=== PATIENT | female | born 1990 | race Caucasian/White ===

== ENCOUNTER 2017-01-16 03:19 | Emergency (ER) | payer OTHER ==
[~2017-01-16] VITALS: Ht 162.5 cm; Wt 68.0 kg
[~2017-01-16 03:19] MED LIST: ALBUTEROL2.5 MG/0.5 INH; AMOXICILLIN500 M2 PO; BENTYL10 MG PO; CEPHALEXIN500 M1 PO; CIPRO500 MG PO; FLEXERIL10 MG PO; HYDROXYZINE PAM25 MG PO; IBU800 M1 PO; IRON325 M1 PO; MACROBID100 M1 PO; MOTRIN800 MG PO; Motrin,Rufen800 MG PO; PERCOCET 325 MG1 TA5 PO; PRENATAL1 TA3 PO; ZYRTEC10 MG PO
[2017-01-16] MEDS ORDERED: PRILOSEC20 M1 PO (03:22)
[2017-01-16 03:59] LABS: BASO % 0.4 % (0.0-1.0); EOS # 0.2 10*3/uL (0.0-0.4); HEMATOCRIT 39.6 % (37.0-47.0); HEMOGLOBIN 13.2 g/dl (12.0-16.0); LYMPH # 3.5 10*3/uL (1.3-4.4); LYMPH % 34.9 % (27.0-41.0); MEAN CELL VOLUME 88.4 fl (81.0-99.0); MEAN CORPUSCULAR HGB 29.5 pg (27.0-31.0); MEAN CORPUSCULAR HGB CONC 33.3 g/dl (33.0-37.0); MEAN PLATELET VOLUME 11.6 fl (9.6-12.3); MONO # 0.4 10*3/uL (0.1-1.0); MONO % 4.2 % (3.0-9.0); NEUT # 5.8 10*3/uL (2.3-7.9); NEUT % 58.2 % (47.0-73.0); PLATELET COUNT AUTOMATED 159 10*3/uL (130-400); RED BLOOD COUNT 4.48 10*6/uL (4.10-5.10); RED CELL DISTRI WIDTH 13.5 % (0-14.5)
[2017-01-16 04:15] LABS: ALBUMIN 3.5 gm/dl (3.1-4.5); ALKALINE PHOSPHATASE 64 U/L (45-117); BILIRUBIN, TOTAL 0.3 mg/dl (0.2-1.0); BUN 14 mg/dl (7-24); CARBON DIOXIDE 25 mmol/L (21-32); CHLORIDE 108 mmol/L (98-107); EST GLOM FILT AFRICAN AMERICAN > 60 ml/min; GLUCOSE 99 mg/dL (65-99); POTASSIUM 4.1 mmol/L (3.5-5.1); SGOT/AST 49 IU/L (3-35); SGPT/ALT 29 U/L (12-78); SODIUM 141 mmol/L (136-145); TOTAL PROTEIN 6.7 gm/dL (6.4-8.2)
[2017-01-16 04:16] LABS: TROPONIN I < 0.015 ng/ml (<0.045)
[2017-01-16] MEDS ORDERED: OMEPRAZOLE40 MG PO (04:35)
== END 2017-01-16 04:56 | disposition home or self-care (01) ==
LOC: ED 03:19
PROVIDERS: Student in an Organized Health Care Education/Training Program
DX: K21.9 Gastro-esophageal reflux disease without esophagitis (principal)

== ENCOUNTER 2017-02-17 14:18 | Emergency (ER) | payer OTHER ==
[~2017-02-17] VITALS: Ht 165.1 cm; Wt 58.1 kg
[~2017-02-17 14:18] MED LIST changes: +OMEPRAZOLE40 MG PO; +PRILOSEC20 M1 PO
[2017-02-17 14:50] LABS: BASO # 0.1 10*3/uL (0.0-0.1); BASO % 0.8 % (0.0-1.0); EOS # 0.4 10*3/uL (0.0-0.4); EOS % 4.6 % (1.0-4.0); HEMATOCRIT 41.9 % (37.0-47.0); HEMOGLOBIN 14.3 g/dl (12.0-16.0); LYMPH # 3.4 10*3/uL (1.3-4.4); LYMPH % 36.3 % (27.0-41.0); MEAN CELL VOLUME 87.1 fl (81.0-99.0); MEAN CORPUSCULAR HGB 29.7 pg (27.0-31.0); MEAN CORPUSCULAR HGB CONC 34.1 g/dl (33.0-37.0); MONO # 0.4 10*3/uL (0.1-1.0); MONO % 4.8 % (3.0-9.0); NEUT # 4.9 10*3/uL (2.3-7.9); NEUT % 53.4 % (47.0-73.0); PLATELET COUNT AUTOMATED 193 10*3/uL (130-400); RED BLOOD COUNT 4.81 10*6/uL (4.10-5.10); RED CELL DISTRI WIDTH 13.4 % (0-14.5); WHITE BLOOD COUNT 9.2 10*3/uL (4.8-10.8)
[2017-02-17 15:10] LABS: ALBUMIN 3.9 gm/dl (3.1-4.5); ALKALINE PHOSPHATASE 103 U/L (45-117); BUN 15 mg/dl (7-24); CHLORIDE 106 mmol/L (98-107); CREATININE 1.13 mg/dL (0.55-1.02); LIPASE 247 U/L (73-393); POTASSIUM 4.2 mmol/L (3.5-5.1); SGOT/AST 74 IU/L (3-35); SGPT/ALT 110 U/L (12-78); SODIUM 140 mmol/L (136-145); TOTAL PROTEIN 7.9 gm/dL (6.4-8.2)
[2017-02-17 15:12] LABS: TROPONIN I < 0.015 ng/ml (<0.045)
[2017-02-17 15:17] LABS: BILIRUBIN NEGATIVE (NEGATIVE); BLOOD TRACE-INTACT (NEGATIVE); CLARITY SL CLOUDY (CLEAR); COLOR YELLOW (YELLOW); GLUCOSE NEGATIVE (NEGATIVE); KETONE NEGATIVE (NEGATIVE); LEUKO ESTERASE NEGATIVE (NEGATIVE); NITRITE NEGATIVE (NEGATIVE); SPECIFIC GRAVITY <= 1.005 (1.005-1.030); UROBILINOGEN 0.2 E.U./dl (0.2-1.0)
[2017-02-17 15:47] LABS: BACTERIA TRACE; MUCOUS 2+
[2017-02-17] MEDS ORDERED: NORCO 10-325 T1 EACH PO (16:37)
== END 2017-02-17 18:52 | disposition home or self-care (01) ==
LOC: ED 14:18
PROVIDERS: Emergency Medicine; Student in an Organized Health Care Education/Training Program
DX: K80.00 Calculus of gallbladder with acute cholecystitis without obstruction (principal); K21.9 Gastro-esophageal reflux disease without esophagitis; F17.200 Nicotine dependence, unspecified, uncomplicated; Z79.899 Other long term (current) drug therapy

== ENCOUNTER → 2017-03-19 | Day surgery (SDC) | payer OTHER ==
[2017-03-18 10:56] LABS: BILIRUBIN NEGATIVE (NEGATIVE); BLOOD 3+ (NEGATIVE); CLARITY SL CLOUDY (CLEAR); COLOR YELLOW (YELLOW); GLUCOSE NEGATIVE (NEGATIVE); KETONE NEGATIVE (NEGATIVE); LEUKO ESTERASE NEGATIVE (NEGATIVE); NITRITE NEGATIVE (NEGATIVE); PH 5.5 (5.0-9.0); SPECIFIC GRAVITY 1.025 (1.005-1.030); UROBILINOGEN 0.2 E.U./dl (0.2-1.0)
[2017-03-18 10:57] LABS: BASO # 0.1 10*3/uL (0.0-0.1); BASO % 0.7 % (0.0-1.0); EOS # 0.8 10*3/uL (0.0-0.4); EOS % 9.9 % (1.0-4.0); HEMATOCRIT 40.3 % (37.0-47.0); HEMOGLOBIN 13.4 g/dl (12.0-16.0); LYMPH # 3.5 10*3/uL (1.3-4.4); LYMPH % 43.4 % (27.0-41.0); MEAN CORPUSCULAR HGB 30.2 pg (27.0-31.0); MEAN CORPUSCULAR HGB CONC 33.3 g/dl (33.0-37.0); MEAN PLATELET VOLUME 12.1 fl (9.6-12.3); MONO # 0.4 10*3/uL (0.1-1.0); MONO % 5.3 % (3.0-9.0); NEUT # 3.3 10*3/uL (2.3-7.9); NEUT % 40.6 % (47.0-73.0); PLATELET COUNT AUTOMATED 151 10*3/uL (130-400); RED BLOOD COUNT 4.43 10*6/uL (4.10-5.10); RED CELL DISTRI WIDTH 13.3 % (0-14.5); WHITE BLOOD COUNT 8.1 10*3/uL (4.8-10.8)
[2017-03-18 11:07] LABS: BACTERIA TRACE
[2017-03-18 11:33] LABS: ALBUMIN 3.7 gm/dl (3.1-4.5); ALKALINE PHOSPHATASE 62 U/L (45-117); BILIRUBIN, DIRECT < 0.1 mg/dL (0.0-0.2); BUN 11 mg/dl (7-24); CHLORIDE 107 mmol/L (98-107); CREATININE 1.05 mg/dL (0.55-1.02); POTASSIUM 4.6 mmol/L (3.5-5.1); SGOT/AST 7 IU/L (3-35); SGPT/ALT 13 U/L (12-78); SODIUM 140 mmol/L (136-145); TOTAL PROTEIN 7.4 gm/dL (6.4-8.2)
[2017-03-18 11:36] LABS: INTERNATIONAL NORM RATIO 0.9 (2.0-3.5)
[~2017-03-19] VITALS: Ht 162.5 cm; Wt 65.3 kg
[~2017-03-19] MED LIST changes: +NORCO 10-325 T1 EACH PO; +NORCO 5-325 TA1 EACH PO; +PROAIR HFA8.5 GM INH
--- NOTE | ~2017-03-19 | O ---
[place], [place] OPERATIVE NOTE NAME: CAROL ASCENCIO [facility] #: [id number] UNIT #: [id number] ROOM: DOCTOR: VALERIO WORKMAN MD BIRTHDATE: [birth year] DOS: 03/19/2017 PREOPERATIVE DIAGNOSIS: Symptomatic gallstones. POSTOPERATIVE DIAGNOSIS: Symptomatic gallstones. PROCEDURE: Laparoscopic cholecystectomy. SURGEON: Valerio Workman MD TAIL PULLER: MS3. ANESTHESIA: General with endotracheal intubation. INDICATIONS: This is a 26-year-old lady who is here for a laparoscopic cholecystectomy for symptomatic gallstones. The procedure and its complications explained to the patient in detail preoperatively. Complications that were discussed included but were not limited to bleeding, infection, hematoma/seroma/abscess formation, prolonged postoperative pain, damage to underlying vital structures, inadvertent injury to common bile duct and biloma formation, she agreed to proceed. DESCRIPTION OF PROCEDURE: After identifying the patient, the patient was brought to the operating suite and laid in the supine position. After induction of general anesthesia, the parts were painted and draped in the usual sterile fashion. A time-out procedure was called. A transverse incision was made below the umbilicus with the help of a knife. The skin and the subcutaneous tissue were incised. The fascia was incised vertically and 2 stay sutures with 0 Vicryl were taken on either side. The peritoneum was opened and a 10 mm Sanju port was introduced. Under direct vision, pneumoperitoneum was created and an epigastric incision of 10 mm and two right upper quadrant 5 mm incisions were made and appropriate size ports were introduced. The gallbladder was retracted superiorly and laterally. The cystic duct and the cystic artery were meticulously dissected until the critical view of safety was obtained. Thereafter, each of these sutures were cut between the first and second clip after they were clipped 3 times. The gallbladder was then removed from the bed of the gallbladder, removed from the peritoneal cavity and sent for histopathological diagnosis. Hemostasis was achieved in the liver bed. Thereafter, the right upper quadrant and the epigastric ports were removed and there was no bleeding seen. The umbilical port was removed and the 2 stay sutures were tied together. 1% lidocaine was injected in the skin and all the 4 incisions and the skin incisions were then approximated with the help of 4-0 Vicryl in a subcuticular running fashion. Dressings were placed in all the 4 incisions. The patient tolerated the procedure well and was taken to the recovery room in stable fashion. There were no complications. Dr. Valerio Workman, the attending surgeon, was present throughout the operating case. [place], [place] OPERATIVE NOTE NAME: CAROL ASCENCIO UNIT #: [id number] ROOM: DOCTOR: VALERIO WORKMAN MD BIRTHDATE: [birth year] Valerio Workman MD CM:OPRECORD:OPERATIVE NOTE 1152 1323 VALERIO WORKMAN MD 03/19/17 1323 interface
[2017-03-19 10:22] VITALS: BP 114/65
[2017-03-19 11:47] VITALS: BP 131/78
[2017-03-19 12:02] VITALS: BP 121/75
[2017-03-19 12:17] VITALS: BP 114/64
[2017-03-19 12:32] VITALS: BP 113/66
[2017-03-19 12:46] VITALS: BP 115/68
== END | disposition home or self-care (01) ==
LOC: SDC 03-18 09:30
PROVIDERS: Surgery
DX: K80.10 Calculus of gallbladder with chronic cholecystitis without obstruction (principal); J45.909 Unspecified asthma, uncomplicated; K21.9 Gastro-esophageal reflux disease without esophagitis; F17.210 Nicotine dependence, cigarettes, uncomplicated; Z98.890 Other specified postprocedural states